=== PATIENT | female | born 1980 | race Caucasian/White ===

== ENCOUNTER 2021-01-17 03:43 | Emergency (ER) | payer OTHER ==
[2021-01-17] MEDS ORDERED: IBUPROFEN800 MG PO (04:26)
== END 2021-01-17 04:37 | disposition home or self-care (01) ==
LOC: ER1 03:43
DX: S93.491A Sprain of other ligament of right ankle, initial encounter (principal); Z90.710 Acquired absence of both cervix and uterus; X50.1XXA Overexertion from prolonged static or awkward postures, initial encounter; Y92.009 Unspecified place in unspecified non-institutional (private) residence as the place of occurrence of the external cause
CPT/HCPCS: 73610; 73630; 99283